=== PATIENT | male | born 1950 | race Caucasian/White ===

== ENCOUNTER 2018-03-05 12:00 | Day surgery (SDC) | payer MEDICARE ==
[~2018-03-05 12:00] MED LIST: ALLO300 PO; ANDROGEL; Depo-Testo100 MG/1 M IM; Depo-Testos200 MG/ML IM; FISH1000; FOL2.2T PO; LEVO750 PO; Multiple Vitam1 EAC1 PO; Prilosec Otc20 MG PO; WARF5 PO
== END 2018-03-05 14:19 | disposition home or self-care (01) ==
LOC: WOUND 12:00
DX: L97.521 Non-pressure chronic ulcer of other part of left foot limited to breakdown of skin (principal); G60.9 Hereditary and idiopathic neuropathy, unspecified; I82.90 Acute embolism and thrombosis of unspecified vein; M77.30 Calcaneal spur, unspecified foot
CPT/HCPCS: G0463

== ENCOUNTER 2018-03-12 08:32 | Day surgery (SDC) | payer MEDICARE | END 2018-03-12 10:25 | disposition home or self-care (01) | LOC: WOUND 08:32 | PROC: 0HBNXZZ Excision of Left Foot Skin, External Approach (ICD-10-PCS; principal; 2018-03-12) | DX: L97.521 Non-pressure chronic ulcer of other part of left foot limited to breakdown of skin (principal); I82.90 Acute embolism and thrombosis of unspecified vein; M77.30 Calcaneal spur, unspecified foot; G60.9 Hereditary and idiopathic neuropathy, unspecified | CPT/HCPCS: G0463 ==

== ENCOUNTER 2018-03-26 11:15 | Day surgery (SDC) | payer MEDICARE | END 2018-03-26 12:50 | disposition home or self-care (01) | LOC: WOUND 11:15 | DX: L97.521 Non-pressure chronic ulcer of other part of left foot limited to breakdown of skin (principal); G60.9 Hereditary and idiopathic neuropathy, unspecified; I82.90 Acute embolism and thrombosis of unspecified vein; M77.30 Calcaneal spur, unspecified foot ==

== ENCOUNTER 2018-03-31 09:00 | Day surgery (SDC) | payer MEDICARE | END 2018-03-31 09:26 | disposition home or self-care (01) | LOC: WOUND 09:00 | DX: Z48.00 Encounter for change or removal of nonsurgical wound dressing (principal); L97.521 Non-pressure chronic ulcer of other part of left foot limited to breakdown of skin; G60.9 Hereditary and idiopathic neuropathy, unspecified; I82.90 Acute embolism and thrombosis of unspecified vein; M77.30 Calcaneal spur, unspecified foot | CPT/HCPCS: G0463 ==

== ENCOUNTER 2018-04-21 00:21 | Day surgery (SDC) | payer MEDICARE | END 2018-04-21 23:08 | disposition home or self-care (01) | LOC: ATC 00:21 | DX: L97.909 Non-pressure chronic ulcer of unspecified part of unspecified lower leg with unspecified severity (principal); E78.5 Hyperlipidemia, unspecified; K21.9 Gastro-esophageal reflux disease without esophagitis ==

== ENCOUNTER 2018-05-03 18:14 | Emergency (ER) | payer MEDICARE ==
[~2018-05-03] VITALS: Ht 190.5 cm; Wt 97.5 kg
[2018-05-03] MEDS ORDERED: Norco 5-325 Ta1 EACH PO (19:27)
[2018-05-03] MEDS ORDERED: CYCL10 PO (19:27)
== END 2018-05-03 19:38 | disposition home or self-care (01) ==
LOC: ER 18:14
DX: S39.012A Strain of muscle, fascia and tendon of lower back, initial encounter (principal); X50.0XXA Overexertion from strenuous movement or load, initial encounter; Z88.8 Allergy status to other drugs, medicaments and biological substances; Z79.899 Other long term (current) drug therapy; Z79.01 Long term (current) use of anticoagulants
CPT/HCPCS: 99282

== ENCOUNTER 2018-05-30 07:02 | Emergency (ER) | payer MEDICARE ==
[~2018-05-30] VITALS: Ht 190.5 cm; Wt 97.5 kg
[~2018-05-30 07:02] MED LIST changes: +CYCL10 PO; +Norco 5-325 Ta1 EACH PO
[2018-05-30 08:22] LABS: BASOPHILS ABSOLUTE AUTO 0.01 K/mm3 (0.00-0.23); BASOPHILS PERCENT AUTO 0 % (0-2); EOSINOPHILS ABSOLUTE AUTO 0.03 K/mm3 (0.00-0.68); EOSINOPHILS PERCENT AUTO 1 % (0-6); Hematocrit 47.5 % (37.0-53.0); Hemoglobin 16.2 g/dL (13.5-17.5); IMMATURE GRAN ABSOLUTE AUTO 0.01 K/mm3 (0.00-0.10); IMMATURE GRAN PERCENT AUTO 0 % (0-1); LYMPHOCYTES ABSOLUTE AUTO 0.81 K/mm3 (0.84-5.20); LYMPHOCYTES PERCENT AUTO 21 % (21-46); MONOCYTES ABSOLUTE AUTO 0.38 K/mm3 (0.16-1.47); MONOCYTES PERCENT AUTO 10 % (4-13); Mean Corpuscular HGB 30.4 pg (26.0-34.0); Mean Corpuscular HGB Conc 34.1 g/dL (31.5-36.5); Mean Corpuscular Volume 89 fL (80-100); NEUTROPHILS ABSOLUTE AUTO 2.69 K/mm3 (1.96-9.15); NEUTROPHILS PERCENT AUTO 68 % (41-73); Platelet Count 226 K/mm3 (150-400); RDW Coefficient Variation 13.4 % (11.7-14.2); RDW Standard Deviation 43.8 fL (35.1-46.3); Red Blood Cell Count 5.33 M/mm3 (4.30-5.90); White Blood Cell Count 3.93 K/mm3 (4.00-11.30)
[2018-05-30 08:29] LABS: Alanine Aminotransfer (ALT/SGP 25 U/L (12-78); Albumin, Blood 3.8 g/dL (3.4-5.0); Alk Phos 47 U/L (50-136); Anion Gap 10 mmol/L (6-16); Aspartate Aminotrans (AST/SGOT 19 U/L (12-37); Bilirubin, Total 1.5 mg/dL (0.1-1.0); Blood Urea Nitrogen 16 mg/dL (8-24); Bun/Creatinine Ratio 15.5 (12.0-20.0); CO2, Blood 26 mmol/L (21-32); Calcium, Blood 9.3 mg/dL (8.5-10.1); Chloride, Blood 103 mmol/L (98-108); Creatinine, Blood 1.03 mg/dL (0.60-1.20); Globulin, Blood 3.7 g/dL (2.2-4.0); Glomerular Filtration Rate >60 (60-); Glucose, Blood 95 mg/dL (70-99); Potassium, Blood 3.4 mmol/L (3.5-5.5); Sodium, Blood 139 mmol/L (136-145); Total Protein, Blood 7.5 g/dL (6.4-8.2)
[2018-05-30 08:30] LABS: Source, Urine Clean Catch
[2018-05-30 08:50] LABS: Bilirubin, Urine Neg (Neg); Blood, Urine Neg (Neg); Glucose Qualitative, Urine Neg (Neg); Ketones, Urine 4+ (Neg); Leukocyte Esterase, Urine 2+ (Neg); Nitrite, Urine Neg (Neg); Protein, Urine Neg (Neg); Urobilinogen, Urine NORM (Normal)
[2018-05-30 09:12] LABS: Appearance, Urine Clear (Clear); Color, Urine Yellow (P-Yellow)
[2018-05-30 09:15] LABS: Bacteria Few /hpf; Red Blood Cells, Urine 0-2 /hpf (0-2); Squamous Epithelial Cells Rare /hpf (Few)
[2018-05-30] MEDS ORDERED: CYCL10 PO (09:52)
== END 2018-05-30 10:16 | disposition home or self-care (01) ==
LOC: ER 07:02
PROVIDERS: Emergency Medicine
DX: K52.9 Noninfective gastroenteritis and colitis, unspecified (principal); M16.0 Bilateral primary osteoarthritis of hip; M54.5 Low back pain; Z88.8 Allergy status to other drugs, medicaments and biological substances; Z79.899 Other long term (current) drug therapy; Z79.01 Long term (current) use of anticoagulants
CPT/HCPCS: 74177; 80053; 81001; 83690; 85025; 87086; 96374; 96375; 99284-25; J1170; J2405; Q9967

== ENCOUNTER 2018-05-31 05:58 | Emergency (ER) | payer MEDICARE ==
[~2018-05-31] VITALS: Ht 190.5 cm; Wt 94.3 kg
[2018-05-31 07:02] LABS: BASOPHILS ABSOLUTE AUTO 0.02 K/mm3 (0.00-0.23); BASOPHILS PERCENT AUTO 1 % (0-2); EOSINOPHILS ABSOLUTE AUTO 0.02 K/mm3 (0.00-0.68); EOSINOPHILS PERCENT AUTO 1 % (0-6); Hematocrit 45.4 % (37.0-53.0); Hemoglobin 15.7 g/dL (13.5-17.5); IMMATURE GRAN PERCENT AUTO 0 % (0-1); LYMPHOCYTES ABSOLUTE AUTO 0.75 K/mm3 (0.84-5.20); LYMPHOCYTES PERCENT AUTO 17 % (21-46); MONOCYTES ABSOLUTE AUTO 0.33 K/mm3 (0.16-1.47); MONOCYTES PERCENT AUTO 8 % (4-13); Mean Corpuscular HGB 31.3 pg (26.0-34.0); Mean Corpuscular HGB Conc 34.6 g/dL (31.5-36.5); Mean Corpuscular Volume 90 fL (80-100); Mean Platelet Volume 8.6 fL (9.1-12.4); NEUTROPHILS ABSOLUTE AUTO 3.19 K/mm3 (1.96-9.15); NEUTROPHILS PERCENT AUTO 74 % (41-73); Platelet Count 218 K/mm3 (150-400); RDW Coefficient Variation 13.7 % (11.7-14.2); RDW Standard Deviation 45.4 fL (35.1-46.3); Red Blood Cell Count 5.02 M/mm3 (4.30-5.90); White Blood Cell Count 4.31 K/mm3 (4.00-11.30)
[2018-05-31 07:17] LABS: Alanine Aminotransfer (ALT/SGP 21 U/L (12-78); Albumin, Blood 3.6 g/dL (3.4-5.0); Alk Phos 45 U/L (50-136); Anion Gap 10 mmol/L (6-16); Aspartate Aminotrans (AST/SGOT 20 U/L (12-37); Bilirubin, Total 1.2 mg/dL (0.1-1.0); Blood Urea Nitrogen 11 mg/dL (8-24); Bun/Creatinine Ratio 10.9 (12.0-20.0); CO2, Blood 27 mmol/L (21-32); Calcium, Blood 9.2 mg/dL (8.5-10.1); Chloride, Blood 104 mmol/L (98-108); Creatinine, Blood 1.01 mg/dL (0.60-1.20); Globulin, Blood 3.6 g/dL (2.2-4.0); Glomerular Filtration Rate >60 (60-); Glucose, Blood 98 mg/dL (70-99); Potassium, Blood 3.6 mmol/L (3.5-5.5); Sodium, Blood 141 mmol/L (136-145); Total Protein, Blood 7.2 g/dL (6.4-8.2)
== END 2018-05-31 11:27 | disposition home or self-care (01) ==
LOC: ER 05:58
PROVIDERS: Emergency Medicine
DX: K59.00 Constipation, unspecified (principal); Z88.8 Allergy status to other drugs, medicaments and biological substances; Z79.899 Other long term (current) drug therapy; Z79.01 Long term (current) use of anticoagulants
CPT/HCPCS: 80053; 83605; 85025; 96374; 96375; 99284-25; J3010; J3360

== ENCOUNTER 2018-08-31 15:08 | Day surgery (SDC) | payer MEDICARE ==
[~2018-08-31 15:08] MED LIST changes: +CALCIUM PO; +FISH OIL 1,0001 EAC1 PO; +FISH OIL 1,0001 EACH PO; -FISH1000; +FOLGARD OS PO; +GLUC500 PO; +Hair, Skin & N1 EACH PO; +OMEPRAZOLE MAGN20 MG PO; +PROBIOTIC1 EAC3 PO; +Rocephin 1g1 G/50 ML IV; +TESTOSTERO200 MG/1 M IM; +Vitamin B Comple1 EA PO; +Vitamin C100 M1 PO; +WARF4 PO
--- NOTE | 2018-08-31 15:33 | NUR ---
Ambulatory in Day Surgery History, Chart, Medications and Allergies reviewed before start of procedure.Lungs clear T/O to Auscultation. Patient confirms NPO status and agrees with scheduled surgery. Patient States Post-Procedure ride home has been arranged.PT/INR SENT STAT WITH IV START.
[2018-08-31 16:21] LABS: International Normalized Ratio 1.06; Prothrombin Time Results 10.9 Sec (9.7-11.5)
--- NOTE | 2018-08-31 17:37 | NUR ---
"SUPERVISOR LAUNDRY | NO ANESTHESIA END TIME RECORDED."
--- NOTE | 2018-08-31 17:45 | NUR ---
ASSUMED PT CARE-REPORT FROM JOVAN YAP. PT A&OX3. DENIES PAIN OR NAUSEA. NELIDA WRAP TO LEFT FOOT-SMALL AMOUNT OF SANGINOUS DRAINAGE NOTED-THIS IS REPORTEDLY UNCHANGED FROM PACU.
--- NOTE | 2018-08-31 18:00 | NUR ---
DRESSING CHANGE COMPLETED-DRY GUAZE X2 AND KERLIX APPLIED. SUTURES INTACT AND NO NOTED BLEEDING. NEW NELIDA WRAP APPLIED.
--- NOTE | 2018-08-31 18:20 | NUR ---
PT STOOD/PARTIAL WEIGHT BEARING WITHOUT DIFFICULTY. DRESSING TO LEFT FOOT REMAINS C/D/I. Discharge instructions reviewed with patient. Patient verbalizes understanding. Copy given to patient to take home. DR. MAGALLON CONTACTED TO CONFIRM NORCO 5 MG FREQUENCY-(EVERY 6 HOURS PRN PAIN.)WRITTEN ORDER ON RX-SENT HOME WITH PATIENT. Discharged via wheelchair to private car for ride home.
== END 2018-08-31 18:20 | disposition home or self-care (01) ==
LOC: ORSCMMR 15:08
PROVIDERS: Podiatrist
PROC: 0Y6Y0Z1 Detachment at Left 5th Toe, High, Open Approach (ICD-10-PCS; principal; 2018-08-31 16:30)
DX: M86.9 Osteomyelitis, unspecified (principal); K21.9 Gastro-esophageal reflux disease without esophagitis; Z79.899 Other long term (current) drug therapy; Z86.718 Personal history of other venous thrombosis and embolism
CPT/HCPCS: 85610; 88305; 88311; J0690; J2405; J3010; J7120

== ENCOUNTER → 2020-08-23 | Outpatient (CLI) | payer MEDICARE | END | disposition home or self-care (01) | LOC: LAB EV 15:01 | DX: N41.9 Inflammatory disease of prostate, unspecified (principal) | CPT/HCPCS: 87086 ==

== ENCOUNTER → 2021-06-21 | Outpatient (CLI) | payer MEDICARE ==
[2021-06-21 11:59] LABS: BASOPHILS ABSOLUTE AUTO 0.04 K/mm3 (0.00-0.23); BASOPHILS PERCENT AUTO 1 % (0-2); EOSINOPHILS PERCENT AUTO 0 % (0-6); Hematocrit 44.5 % (37.0-53.0); Hemoglobin 15.3 g/dL (13.5-17.5); IMMATURE GRAN ABSOLUTE AUTO 0.02 K/mm3 (0.00-0.10); IMMATURE GRAN PERCENT AUTO 0 % (0-1); LYMPHOCYTES ABSOLUTE AUTO 0.37 K/mm3 (0.84-5.20); MONOCYTES ABSOLUTE AUTO 0.57 K/mm3 (0.16-1.47); MONOCYTES PERCENT AUTO 7 % (4-13); Mean Corpuscular HGB 31.2 pg (26.0-34.0); Mean Corpuscular HGB Conc 34.4 g/dL (31.5-36.5); Mean Corpuscular Volume 91 fL (80-100); Mean Platelet Volume 8.9 fL (9.1-12.4); NEUTROPHILS ABSOLUTE AUTO 6.75 K/mm3 (1.96-9.15); NEUTROPHILS PERCENT AUTO 87 % (41-73); Platelet Count 175 K/mm3 (150-400); RDW Coefficient Variation 13.4 % (11.7-14.2); RDW Standard Deviation 44.6 fL (35.1-46.3); Red Blood Cell Count 4.91 M/mm3 (4.30-5.90); White Blood Cell Count 7.75 K/mm3 (4.00-11.30)
[2021-06-21 12:06] LABS: Albumin, Blood 3.8 g/dL (3.4-5.0); Albumin/Globulin Ratio 1.1 (0.8-1.8); Bilirubin, Total 1.9 mg/dL (0.1-1.0); Bun/Creatinine Ratio 15.1 (12.0-20.0); Calcium, Blood 9.4 mg/dL (8.5-10.1); Creatinine, Blood 1.39 mg/dL (0.60-1.20); Globulin, Blood 3.5 g/dL (2.2-4.0); Potassium, Blood 3.9 mmol/L (3.5-5.5); Total Protein, Blood 7.3 g/dL (6.4-8.2)
[2021-06-21 12:39] LABS: LYMPHOCYTES PERCENT AUTO 5 % (21-46)
== END | disposition home or self-care (01) ==
LOC: LAB SHORT 11:50
PROVIDERS: Physician Assistant
DX: R55 Syncope and collapse (principal)
CPT/HCPCS: 80053; 85025; 85379

== ENCOUNTER 2022-03-19 09:06 | Day surgery (SDC) | payer MEDICARE ==
[~2022-03-19] VITALS: Ht 195.6 cm; Wt 100.6 kg
== END 2022-03-19 11:57 | disposition home or self-care (01) ==
LOC: ORSCSDS 09:06
PROVIDERS: Internal Medicine Gastroenterology
PROC: 0DBN8ZX Excision of Sigmoid Colon, Via Natural or Artificial Opening Endoscopic, Diagnostic (ICD-10-PCS; principal; 2022-03-19 10:30)
PROC: 0DBM8ZX Excision of Descending Colon, Via Natural or Artificial Opening Endoscopic, Diagnostic (ICD-10-PCS; principal; 2022-03-19 10:30)
DX: Z12.11 Encounter for screening for malignant neoplasm of colon (principal); Z86.010 Personal history of colon polyps; D12.2 Benign neoplasm of ascending colon; D12.5 Benign neoplasm of sigmoid colon; K57.30 Diverticulosis of large intestine without perforation or abscess without bleeding; Z86.711 Personal history of pulmonary embolism; Z79.01 Long term (current) use of anticoagulants; Z79.899 Other long term (current) drug therapy; Z86.718 Personal history of other venous thrombosis and embolism
CPT/HCPCS: 88305; J2704; J7120

== ENCOUNTER → 2022-06-20 | Outpatient (CLI) | payer MEDICARE ==
[2022-06-20 11:32] LABS: BASOPHILS ABSOLUTE AUTO 0.04 K/mm3 (0.00-0.23); BASOPHILS PERCENT AUTO 1 % (0-2); EOSINOPHILS ABSOLUTE AUTO 0.04 K/mm3 (0.00-0.68); EOSINOPHILS PERCENT AUTO 1 % (0-6); Hematocrit 43.8 % (37.0-53.0); IMMATURE GRAN ABSOLUTE AUTO 0.01 K/mm3 (0.00-0.10); IMMATURE GRAN PERCENT AUTO 0 % (0-1); LYMPHOCYTES ABSOLUTE AUTO 0.81 K/mm3 (0.84-5.20); LYMPHOCYTES PERCENT AUTO 12 % (21-46); MONOCYTES PERCENT AUTO 9 % (4-13); Mean Corpuscular HGB 31.4 pg (26.0-34.0); Mean Corpuscular HGB Conc 34.2 g/dL (31.5-36.5); Mean Corpuscular Volume 92 fL (80-100); Mean Platelet Volume 8.9 fL (9.1-12.4); NEUTROPHILS ABSOLUTE AUTO 5.33 K/mm3 (1.96-9.15); NEUTROPHILS PERCENT AUTO 78 % (41-73); Platelet Count 176 K/mm3 (150-400); RDW Coefficient Variation 13.8 % (11.7-14.2); Red Blood Cell Count 4.78 M/mm3 (4.30-5.90); White Blood Cell Count 6.83 K/mm3 (4.00-11.30)
[2022-06-20 11:44] LABS: Albumin, Blood 3.6 g/dL (3.4-5.0); Albumin/Globulin Ratio 1.1 (0.8-1.8); Bun/Creatinine Ratio 15.1 (12.0-20.0); Calcium, Blood 9.4 mg/dL (8.5-10.1); Creatinine, Blood 1.26 mg/dL (0.60-1.20); Globulin, Blood 3.4 g/dL (2.2-4.0)
[2022-06-20 12:36] LABS: International Normalized Ratio 2.65; Prothrombin Time Results 26.1 Sec (9.7-11.5)
== END | disposition home or self-care (01) ==
LOC: LAB SHORT 11:27 → LAB 11:27
PROVIDERS: General Practice
DX: Z79.01 Long term (current) use of anticoagulants (principal); Z51.81 Encounter for therapeutic drug level monitoring; R06.00 Dyspnea, unspecified
CPT/HCPCS: 80053; 84484; 85025; 85610

== ENCOUNTER 2023-02-26 02:53 | Day surgery (SDC) | payer MEDICARE ==
[~2023-02-26 02:53] MED LIST changes: +ACET325 PO; -CALCIUM PO; +Calcium Carbon500 MG PO; +MELATONIN5 M1 PO; +ONDA4ODT MM; +XARELTO20 MG PO
[2023-02-26 14:23] VITALS: BP 142/75
[2023-02-26] MEDS ORDERED: SULTRIDS PO (14:26)
== END 2023-02-26 16:52 | disposition home or self-care (01) ==
LOC: ATC 02:53
DX: L97.522 Non-pressure chronic ulcer of other part of left foot with fat layer exposed (principal)
CPT/HCPCS: 96365; 96366; C1751; J3370; J7050

== ENCOUNTER 2023-02-27 01:00 | Day surgery (SDC) | payer MEDICARE ==
[~2023-02-27 01:00] MED LIST changes: +SULTRIDS PO
[2023-02-27 10:01] VITALS: BP 130/77
== END 2023-02-27 12:00 | disposition home or self-care (01) ==
LOC: ATC 01:00
DX: L97.522 Non-pressure chronic ulcer of other part of left foot with fat layer exposed (principal); Z89.422 Acquired absence of other left toe(s); G60.3 Idiopathic progressive neuropathy; M10.072 Idiopathic gout, left ankle and foot; Z88.1 Allergy status to other antibiotic agents; Z88.2 Allergy status to sulfonamides; Z88.8 Allergy status to other drugs, medicaments and biological substances; L03.032 Cellulitis of left toe; G62.9 Polyneuropathy, unspecified
CPT/HCPCS: 96365; 96366; J3370; J7050

== ENCOUNTER 2023-02-28 06:04 | Day surgery (SDC) | payer MEDICARE ==
[2023-02-28 13:23] VITALS: BP 120/73
[2023-02-28 13:49] LABS: Creatinine, Blood 1.32 mg/dL (0.60-1.20)
== END 2023-02-28 16:05 | disposition home or self-care (01) ==
LOC: ATC 06:04
PROVIDERS: Podiatrist
DX: L97.522 Non-pressure chronic ulcer of other part of left foot with fat layer exposed (principal)
CPT/HCPCS: 80202; 82565; 96365; 96366; J3370; J7050

== ENCOUNTER 2023-03-01 02:43 | Day surgery (SDC) | payer MEDICARE ==
[2023-03-01 13:26] VITALS: BP 126/70
== END 2023-03-01 15:30 | disposition home or self-care (01) ==
LOC: ATC 02:43
DX: L97.522 Non-pressure chronic ulcer of other part of left foot with fat layer exposed (principal)
CPT/HCPCS: 96365; 96366; J3370; J7050

== ENCOUNTER 2023-03-02 02:03 | Day surgery (SDC) | payer MEDICARE ==
[2023-03-02 08:23] VITALS: BP 138/71
== END 2023-03-02 10:26 | disposition home or self-care (01) ==
LOC: ATC 02:03
DX: L97.522 Non-pressure chronic ulcer of other part of left foot with fat layer exposed (principal)
CPT/HCPCS: 96365; 96366; J3370; J7050

== ENCOUNTER 2024-05-13 08:33 | Day surgery (SDC) | payer MEDICARE ==
[~2024-05-13] VITALS: Ht 188 cm; Wt 105.5 kg
[~2024-05-13 08:33] MED LIST changes: +Doxycycline Mo100 M1 PO; +Lactated Ringer's 1,000 ML IV ONE; +Lidocaine HCl/Pf 1% 5 ML VIAL ONE; +Ropivacaine 0.5% HCL/PF 5 MG/ML 30ML Vial ONE
[2024-05-13] MEDS ORDERED: NS 50 ML IV ONE (08:46)
[2024-05-13] MEDS ORDERED: CeFAZolin Sodium 2,000 MG VIAL ONE (08:46)
[2024-05-13] MEDS ORDERED: Midazolam HCl 1MG / ML 2ML Vial ONE (09:16)
[2024-05-13] MEDS ORDERED: FentaNYL Citrate 50 MCG/ML 2 ML Injection ONE (09:16)
[2024-05-13] MEDS ORDERED: Lactated Ringer's 1,000 ML IV ONE (09:18)
--- NOTE | 2024-05-13 09:19 | NUR ---
05/13/24 0919 José Goins CALL LIGHT WITHIN REACH.
[2024-05-13] MEDS ORDERED: propofoL 20 ML IV ONE (09:50)
[2024-05-13] MEDS ORDERED: Dexamethasone Sod Phos 10 MG/ML 1ML VIAL ONE (10:10)
[2024-05-13] MEDS ORDERED: Ondansetron HCl 2 MG / ML 2ML Vial ONE (10:10)
[2024-05-13] MEDS ORDERED: Ketorolac Tromethamine 30mg Vial ONE (10:11)
--- NOTE | 2024-05-13 10:15 | NUR ---
05/13/24 1015 Kasandra Khanna 10ML OF LIDOCAINE 1% MIXED 1:1 WITH ROPIVACAINE 0.5% TO MAKE LOCAL FOR INJECTION AT THE OPSITE BY DR MAGALLON.
[2024-05-13 11:13] VITALS: BP 134/74
--- NOTE | 2024-05-13 13:41 | NUR ---
05/13/24 1340 Tiburcio Mayes PT STATES HE ALREADY RECIEVED PERSCRIPTION FROM DR. MAGALLON AND HAD IT FILLED. HE ALSO STATED THAT DR. MAGALLON INSTRUCTED HIM TO RESUME XARELTO TOMORROW.
== END 2024-05-13 12:05 | disposition home or self-care (01) ==
LOC: ORSCSDS 08:33
PROVIDERS: Podiatrist
PROC: 0QTP0ZZ Resection of Left Metatarsal, Open Approach (ICD-10-PCS; principal; 2024-05-13 09:45)
DX: M21.622 Bunionette of left foot (principal); L97.522 Non-pressure chronic ulcer of other part of left foot with fat layer exposed; G60.3 Idiopathic progressive neuropathy; K21.9 Gastro-esophageal reflux disease without esophagitis; E03.9 Hypothyroidism, unspecified; E78.00 Pure hypercholesterolemia, unspecified; Z79.899 Other long term (current) drug therapy; Z79.01 Long term (current) use of anticoagulants
CPT/HCPCS: J0690; J1100; J1885; J2001; J2250; J2405; J2704; J2795; J3010; J7120

== ENCOUNTER 2025-07-13 06:12 | Day surgery (SDC) | payer MEDICARE ==
[~2025-07-13] VITALS: Ht 190.5 cm; Wt 102.8 kg
[~2025-07-13 06:12] MED LIST changes: -Lactated Ringer's 1,000 ML IV ONE; -Lidocaine HCl/Pf 1% 5 ML VIAL ONE; -Ropivacaine 0.5% HCL/PF 5 MG/ML 30ML Vial ONE
[2025-07-13] MEDS ORDERED: CeFAZolin Sodium 2,000 MG VIAL ONE (06:30)
[2025-07-13] MEDS ORDERED: Bupivacaine 0.5% HCl 5 MG/ML 30MLVIAL XX ONE ×2 (07:49)
[2025-07-13 08:40] VITALS: BP 120/68
--- NOTE | 2025-07-13 08:41 | NUR ---
07/13/25 0841 Crystal Ragsdale PT RESTING COMFORTABLY IN BED. DR MAGALLON AND DR. CALZADA AT BEDSIDE. VSS. PT DENIES PAIN/NAUSEA/DIZZINESS.
== END 2025-07-13 09:13 | disposition home or self-care (01) ==
LOC: ORSCSDS 06:12
PROVIDERS: Podiatrist
PROC: 0L8W0ZZ Division of Left Foot Tendon, Open Approach (ICD-10-PCS; principal; 2025-07-13 07:30)
DX: L97.522 Non-pressure chronic ulcer of other part of left foot with fat layer exposed (principal); M20.42 Other hammer toe(s) (acquired), left foot; G60.3 Idiopathic progressive neuropathy; K21.9 Gastro-esophageal reflux disease without esophagitis; Z86.711 Personal history of pulmonary embolism; Z79.01 Long term (current) use of anticoagulants; Z79.899 Other long term (current) drug therapy
CPT/HCPCS: J0690; J2003; J2704